=== PATIENT | male | born 1980 | race Caucasian/White ===

== ENCOUNTER 2017-09-13 10:20 | Day surgery (SDC) | payer OTHER, BC ==
[2017-09-13] MEDS ORDERED: Levofloxacin 500 MG IVPREMIX(* 500 MG/100 ML BAG IVPB ONE (10:28)
[2017-09-13] MEDS ORDERED: Gentamicin ADULT (*) 160 MG in NS 0.9% 100 ML* 100 ML IVPB ONE (11:00)
[2017-09-13] MEDS ORDERED: Iohexol 180 (CONTRAST) 10 ML SDV IV ONE (11:38)
[2017-09-13] MEDS ORDERED: Midazolam* 1 MG/ML 2 ML VIAL (2 MG) ONE (12:00)
[2017-09-13] MEDS ORDERED: fentaNYL* 50 MCG/ML 2 ML VIAL (100 MCG VIAL) ONE (12:00)
[2017-09-13] MEDS ORDERED: Propofol* 10 MG/ML 20 ML BTL IV PUSH ONE (12:17)
[2017-09-13] MEDS ORDERED: Dexamethasone IV* 4 MG/ML 1 ML (4 MG) ONE (12:17)
[2017-09-13] MEDS ORDERED: Ondansetron INJ* 2 MG/ML VIAL ONE (12:17)
[2017-09-13] MEDS ORDERED: Lidocaine 2% PF * 5 ML VIAL ONE (12:17)
--- NOTE | 2017-09-13 13:03 | RAD ---
INDICATION: Ureteroscopy left side. COMPARISON: Comparison is made with a prior KUB study from September 13, 2017. TECHNIQUE: 12 seconds of intermittent fluoroscopic guidance were provided and 5 spot films of the abdomen were centered on the left side. FINDINGS: There is partial opacification of the left renal collecting system. Subsequently there is placement of a double-J stent catheter on the left side which demonstrates normal course. IMPRESSION: INTRAOPERATIVE CONTROL FILMS. CPT II Codes: G9500
[2017-09-13 13:08] VITALS: BP 138/75
[2017-09-13] MEDS ORDERED: Tamsulosin CAP* 0.4 MG ONE (13:29)
--- NOTE | 2017-09-13 14:02 | RAD ---
HISTORY: Renal calculi, stent insertion COMPARISONS: September 13, 2017 VIEWS: Frontal views of the abdomen. FINDINGS: BOWEL: There is a nonspecific bowel gas pattern, with nondilated small bowel gas noted. CALCULI: A left ureteral stent is noted. The left ureteral calculus is not well visualized on the current examination. BONES AND SOFT TISSUES: There are no osseous abnormalities. OTHER FINDINGS: The lung bases are clear. There is no subphrenic gas. IMPRESSION: LEFT URETERAL STENT
--- NOTE | 2017-09-13 14:04 | HP ---
CC: Dr. Bunch * ADMITTING HISTORY AND PHYSICAL: DATE OF ADMISSION: 09/13/17 ADMITTING DIAGNOSES: 1. Calculus, left proximal ureter. 2. Left hydronephrosis. PROCEDURE: Left ureteroscopy, possible laser and stent insertion (possibly to be followed in near future by lithotripsy). SURGEON: Omkar Newell MD HISTORY OF PRESENT ILLNESS: Maury Adamson is a 37-year-old gentleman with a history of recurrent renal calculi. He was recently evaluated for left flank pain and noted to have a 7-mm calculus in the proximal left ureter. He was started on Flomax 0.4 mg in an effort to promote expulsive therapy medically, but continued to have fairly severe intermittent pain, and a followup ultrasound today revealed a 7- mm calculus still in the proximal left ureter with mild left hydronephrosis. I gave him the option of trying to continue conservative management and also explained that because of the proximal location of the stone, he may end up requiring a 2-stage procedure with the first stage being stent insertion, to be followed possibly by lithotripsy in the near future. PAST MEDICAL HISTORY: Significant for renal calculi. MEDICATIONS: On admission: 1. Flomax 0.4 mg once a day. 2. Percocet p.r.n. ALLERGIES: AMOXICILLIN. REVIEW OF SYSTEMS: He is otherwise in excellent health. There is no history of diabetes mellitus or any other major systemic illness. PHYSICAL EXAMINATION GENERAL: Reveals a pleasant, uncomfortable-appearing, young gentleman. VITAL SIGNS: Blood pressure is 152/96, pulse 85 per minute and regular, temperature 96.1, oxygen saturation 98% on room air. LUNGS: Clear bilaterally. CARDIOVASCULAR: Regular rate and rhythm. S1, S2. ABDOMEN: Soft with mild left flank tenderness. IMPRESSION: A 37-year-old gentleman with a 7-mm calculus in the proximal left ureter with mild left hydronephrosis. Planned procedure is left ureteroscopy, possible laser and stent insertion (possibly to be followed in near future by lithotripsy because of the proximal location of the calculus and the chance that it would migrate into the kidney). [id number]/[facility] #: [id number] MTDD
--- NOTE | 2017-09-14 03:31 | OP ---
DATE OF OPERATION: 09/13/17 - [facility] DATE OF : 84 SURGEON: Omkar Newell MD ANESTHESIOLOGIST: Dr. Salazar. ANESTHESIA: General. PRE-OP DIAGNOSES: 1. Calculus, left proximal ureter. 2. Left hydronephrosis. POST-OP DIAGNOSES: 1. Calculus, left proximal ureter. 2. Left hydronephrosis. OPERATIVE PROCEDURE: Cystoscopy, left retrograde pyelogram, left ureteroscopy and stone manipulation, and left stent insertion. COMPLICATIONS: None. POSTOPERATIVE CONDITION: Stable. STENT USED: A 6-Belgian stent, left ureter. INDICATIONS: Maury Adamson is a 37-year-old gentleman with a history of recurrent renal calculi. He was evaluated for persistent left flank pain secondary to a calculus in the proximal left ureter. DESCRIPTION OF PROCEDURE: After induction of general anesthesia, the patient was placed in dorsal lithotomy position. Sequential compression devices were in place and functioning. Initial cystoscopy revealed a normal appearing urethra. The cystoscope was advanced into the bladder which was unremarkable. A guidewire was introduced into the left ureter and advanced into the proximal collecting system. I did not initially do a retrograde pyelogram in an effort to minimize the chances of having the calculus migrate into the kidney. A 6- Belgian semirigid ureteroscope was introduced and advanced under direct vision. The entire ureter was fairly narrow and the ureteroscope was carefully maneuvered into the proximal ureter where the calculus had been impacted. I could see the inflammatory response to the calculus, but I did not see the calculus, and the ureter beyond that was fairly dilated suggesting that the calculus migrated into the kidney with irrigating fluid. The ureteroscope was carefully withdrawn under direct vision and a 6-Belgian stent was introduced and positioned under fluoroscopy with good proximal and distal positioning obtained. The plan is to obtain a postoperative x-ray and then to bring him back at some point for lithotripsy for definitive treatment of the calculus. [id number]/[facility] #: [id number] MTDD
== END 2017-09-13 13:46 | disposition home or self-care (01) ==
LOC: OR 10:20
PROVIDERS: ATTEND Urology
DX: N13.2 Hydronephrosis with renal and ureteral calculous obstruction (principal); Z87.442 Personal history of urinary calculi
CPT/HCPCS: 74018; 74420; C1876; J1100; J1580; J1956; J2250; J2405; J2704; J3010

== ENCOUNTER 2017-09-30 06:27 | Day surgery (SDC) | payer OTHER, BC ==
[~2017-09-30 06:27] MED LIST: Buffered Lidocaine 0.9% SYRIN* 5 ML/SYR SYRINGE INTRADERM ONE; Dexamethasone IV* 4 MG/ML 1 ML (4 MG) IV SLOW PU ONE; Famotidine TAB* 20 MG PO ONE
[2017-09-30] MEDS ORDERED: Levofloxacin 500 MG IVPREMIX(* 500 MG/100 ML BAG IVPB ONE ×2 (07:00→07:09)
[2017-09-30] MEDS ORDERED: Famotidine TAB* 20 MG ONE (07:09)
[2017-09-30] MEDS ORDERED: Buffered Lidocaine 0.9% SYRIN* 5 ML/SYR SYRINGE ONE (07:09)
[2017-09-30] MEDS ORDERED: Dexamethasone IV* 4 MG/ML 1 ML (4 MG) ONE (07:09)
[2017-09-30] MEDS ORDERED: Midazolam* 1 MG/ML 2 ML VIAL (2 MG) ONE (07:29)
[2017-09-30] MEDS ORDERED: fentaNYL* 50 MCG/ML 2 ML VIAL (100 MCG VIAL) ONE (08:04)
--- NOTE | 2017-09-30 08:19 | RAD ---
INDICATION: Shockwave lithotripsy. COMPARISON: Comparison is made with a prior study from September 16, 2017. TECHNIQUE: Frontal supine films of the abdomen were obtained. FINDINGS: The small bowel and colon appear nondistended. There is a ureteral stent present on the left side which demonstrates normal course. There are couple faint calcific densities which project over the midportion of the left kidney measuring up to 3 mm in size most consistent with renal calculi. IMPRESSION: LEFT URETERAL STENT AND RENAL CALCULI NOTED.
[2017-09-30] MEDS ORDERED: Ondansetron INJ* 2 MG/ML VIAL ONE (08:45)
[2017-09-30] MEDS ORDERED: Propofol* 10 MG/ML 20 ML BTL IV PUSH ONE (08:45)
[2017-09-30] MEDS ORDERED: DiMENhydriNATE IV* 50 MG/ML VIAL IV PUSH PRN (09:07)
[2017-09-30] MEDS ORDERED: fentaNYL* 50 MCG/ML 2 ML VIAL (100 MCG VIAL) IV PRN (09:07)
[2017-09-30] MEDS ORDERED: Naloxone* 0.4 MG/ML 1 ML VIAL IV PRN (09:07)
[2017-09-30 09:59] VITALS: BP 112/75
--- NOTE | 2017-09-30 14:39 | OP ---
CC: Dr. Bunch; Omkar Newell MD* OPERATIVE REPORT: DATE OF OPERATION: 09/30/17 - [facility] DATE OF : 84 SURGEON: Omkar Newell MD ANESTHESIOLOGIST: Dr. Mcintyre. ANESTHESIA: General. PRE-OPERATIVE DIAGNOSIS: Left renal calculus. POST-OPERATIVE DIAGNOSIS: Left renal calculus. OPERATIVE PROCEDURE: 1. Shockwave lithotripsy of left renal calculus. 2. Cystoscopy and left stent removal. COMPLICATIONS: None. POSTOPERATIVE CONDITION: Stable. INDICATIONS: Maury Adamson is a 37-year-old gentleman who had undergone left stent insertion for a calculus in the left proximal ureter. He is now being brought in for shockwave lithotripsy of the left renal calculus and also left stent removal. DESCRIPTION OF PROCEDURE: After induction of general anesthesia, the patient was placed on the lithotripsy table in a supine position. The calculus in the mid to lower pole of the left kidney was identified under fluoroscopic monitoring. Shockwave lithotripsy was commenced at a rate of 90 shocks per minute. After the initial 300 shocks, there was a pause in lithotripsy for several minutes in an effort to minimize any potential trauma to the kidney. Lithotripsy was then resumed. A total of 800 shocks were administered and good fragmentation was observed. Next, the patient was placed in dorsal lithotomy position and cystoscopy was performed. The stent was seen exiting from the left orifice and was removed intact without difficulty. The bladder was emptied. The patient tolerated the procedure satisfactorily and was transferred back to the recovery area in stable condition. [id number]/[facility] #: [id number] HELEN HAYES HOSPITALAlejandro
== END 2017-09-30 10:00 | disposition home or self-care (01) ==
LOC: OR 06:27
PROVIDERS: ATTEND Urology
DX: N13.2 Hydronephrosis with renal and ureteral calculous obstruction (principal); Z68.30 Body mass index [BMI] 30.0-30.9, adult; M19.90 Unspecified osteoarthritis, unspecified site
CPT/HCPCS: 74018; A9270-GY; J1100; J1956; J2250; J2405; J2704; J3010

== ENCOUNTER 2018-10-02 12:02 | Emergency (ER) | payer OTHER, BC ==
--- OUTSIDE RECORDS SUMMARY | 2018-10-02 12:09 | XMS REPORT | Continuity of Care Document ---
:1980 External Reference #:[id number] Author Name Merle Johnson Care Team Providers Name Role Phone Sameer Bunch MD Primary Care Physician Unavailable Payers Date Identification Numbers Payment Provider Subscriber Policy Number: [id number] [facility] Maury Adamson PayID: [id number] [address] [place] [address] PayID: [id number] [facility] Yvrose Adamson [address] [place] [address] Advance Directives Description No Information Available Problems Description No Information Family History Date Family Member(s) Observation Comments Father Coronary Artery Disease (CAD) Father Diabetes Type II Siblings 1 sister Social History Type Date Description Comments Sex Unknown Marital Status Lives With Family 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 [employer] Tobacco Use Start: Unknown Never Smoked Cigarettes Smoking Status Reviewed: 10/01/18 Never Smoked Cigarettes ETOH Use consumed 1-2 beers per week Tobacco Use Start: Unknown Patient has never smoked Recreational Drug Use Denies Drug Use Exercise Type/Frequency Exercises regularly running 1-2 x week Allergies, Adverse Reactions, Alerts Active Allergies Reaction Severity Comments Date Amoxicillin 09/26/2018 Medications Description No Active Medications Immunizations Description No Information Available Vital Signs Date Vital Result Comment 10/01/2018 12:49pm Height 66 inches 5'6" Weight 196.00 lb w/shoes Heart Rate 74 /min BP Systolic Sitting 126 mmHg Lue reg cuff BP Diastolic Sitting 80 mmHg Lue reg cuff BP Systolic Standing 120 mmHg Lue reg cuff BP Diastolic Standing 70 mmHg Lue reg cuff Body Temperature 101.0 F BMI (Body Mass Index) 31.6 kg/m2 Results Description No Information Available Procedures Date Code Description Status 10/01/2018 34836 EKG Tracing & Interpretation Completed Encounters Type Date Location Provider Dx Diagnosis Office Visit 10/01/2018 [facility] Tramaine Arita R07.9 Chest pain, 1:00p Of Tonio Griggs M.D. unspecified Plan of Treatment Future Appointment(s):10/24/2018 9:15 am - Tramaine Griggs M.D. at [facility]10/24/2018 8:45 am - [facility] ECHO Schedule at [facility]10/01/2018 - Tramaine Griggs M.D.R07.9 Chest pain, unspecifiedNew Orders :Stress Test, Treadmill, No Imaging, Scheduled: 10/24/18Follow up:no follow up needed unless stress test is abnormal
[2018-10-02 12:13] VITALS: BP 134/81
[2018-10-02] MEDS ORDERED: Ibuprofen TAB* 400 MG PO ONE (12:24)
[2018-10-02 12:34] LABS: Influenza A Molecular NEGATIVE (Negative); Influenza B Molecular NEGATIVE (Negative)
--- NOTE | 2018-10-02 12:41 | ED ---
Influenza-Like Illness - HPI Summary HPI Summary: 38-year-old male presents with fever for the past couple days. He states he has muscle aches and chills. No sore throat. He states he feels very fatigued. No nausea or vomiting. No bowel pain. No urinary symptoms. No headache or neck stiffness. Has no medical conditions. - History of Current Complaint Chief Complaint: UCGeneralIllness Time Seen by Provider: 10/02/18 12:14 - Allergy/Home Medications Allergies/Adverse Reactions: Allergies Allergy/AdvReac Type Severity Reaction Status Date / Time amoxicillin Allergy Hives Verified 10/02/18 12:13 Home Medications: Home Medications NK [No Home Medications Reported] 10/02/18 [History Confirmed 10/02/18] PMH/Surg Hx/FS Hx/Imm Hx Endocrine/Hematology History: Denies: Hx Anticoagulant Therapy Respiratory History: Denies: Hx Asthma History: Reports: Hx Kidney Stones - x4 Musculoskeletal History: Reports: Hx Arthritis - bilateral knees Sensory History: Denies: Hx Contacts or Glasses, Hx Hearing Aid Opthamlomology History: Denies: Hx Contacts or Glasses - Cancer History Cancer Type, Location and Year: kidney stones - Surgical History Surgery Procedure, Year, and Place: bilateral ear myringotomy as a child - [place]. left ureteral stent 09/13/17 - [facility] Hx Anesthesia Reactions: Yes - PONV after ear tubes, was fine with stent Infectious Disease History: No Infectious Disease History: Denies: Traveled Outside the [place] in Last 30 Days - Family History Known Family History: Positive: Non-Contributory - Social History Alcohol Use: Weekly Alcohol Amount: reports couple drinks per week Substance Use Type: Reports: None Smoking Status (MU): Never Smoked Tobacco Have You Smoked in the Last Year: No Review of Systems Positive: Fever, Chills Negative: Chest Pain Positive: Cough. Negative: Shortness Of Breath Negative: Abdominal Pain All Other Systems Reviewed And Are Negative: Yes Physical Exam Triage Information Reviewed: Yes Vital Signs On Initial Exam: Initial Vitals Temp Pulse Resp BP Pulse Ox 100.7 F 100 18 134/81 98 10/02/18 12:11 10/02/18 12:11 10/02/18 12:11 10/02/18 12:11 10/02/18 12:11 Vital Signs Reviewed: Yes Appearance: Positive: Well-Appearing Skin: Positive: Warm, Dry Head/Face: Positive: Normal Head/Face Inspection Eyes: Positive: Normal, EOMI, SOULEYMANE, Conjunctiva Clear ENT: Positive: Normal ENT inspection, Pharynx normal, TMs normal Respiratory/Lung Sounds: Positive: Clear to Auscultation, Breath Sounds Present Cardiovascular: Positive: Normal, RRR Abdomen Description: Positive: Nontender, Soft Bowel Sounds: Positive: Present Musculoskeletal: Positive: Normal Neurological: Positive: Normal Psychiatric: Positive: Normal Diagnostics - Vital Signs Vital Signs Temp Pulse Resp BP Pulse Ox 10/02/18 12:11 100.7 F 100 18 134/81 98 - Laboratory Lab Results: Lab Results 10/02/18 Range/Units 12:22 Influenza A (Rapid) Negative (Negative) Influenza B (Rapid) Negative (Negative) Lab Statement: Any lab studies that have been ordered have been reviewed, and results considered in the medical decision making process. Flu Symptom Course/Dx - Course Course Of Treatment: 38-year-old male presents with fever for the past couple days. He states he has muscle aches and chills. No sore throat. He states he feels very fatigued. No nausea or vomiting. No bowel pain. No urinary symptoms. No headache or neck stiffness. Has no medical conditions. On exam nontoxic. lungs clear to auscultation. Pharynx normal. Flu negative. Told likely viral to treat supportively. told follow up about blood pressure as is in pre-htn range. Patient understands agrees with plan. - Diagnoses Differential Diagnosis/HQI/PQRI: Positive: Influenza, Pneumonia, Upper Respiratory Infection Provider Diagnoses: Fever Discharge - Sign-Out/Discharge Documenting (check all that apply): Patient Departure All imaging exams completed and their final reports reviewed: No Studies - Discharge Plan Condition: Good Disposition: HOME Patient Education Materials: Viral Syndrome (ED) Referrals: Sameer Bunch MD [Primary Care Provider] - Additional Instructions: Take Tylenol and ibuprofen for muscle aches and fever every 6 hours Saline rinse can be used multiple times a day for nasal congestion Drink plenty of fluids Return to ED if develop any new or worsening symptoms - Billing Disposition and Condition Condition: GOOD Disposition: Home
== END 2018-10-02 13:07 | disposition home or self-care (01) ==
LOC: UCEAST 12:02
DX: R50.9 Fever, unspecified (principal); R53.83 Other fatigue; Z88.0 Allergy status to penicillin
CPT/HCPCS: 99212; A9270-GY; G0463